=== PATIENT | female | born 1955 | race Caucasian/White ===

== ENCOUNTER → 2017-03-03 | Outpatient (CLI) | payer BC ==
--- NOTE | 2017-03-04 06:01 | WWHP ---
DATE OF SERVICE: 03/03/2017 CHIEF COMPLAINT: The patient is here for her routine gynecologic exam and mammogram. HPI: This is a 61-year-old G1, P1 with an LMP of 2002. The patient denies any postmenopausal bleeding. She has been experiencing some pelvic pressure for the past couple of weeks. The patient had a urinalysis done through Dr. Avalos's office which showed some leukocytes and blood. She was started on Macrobid, but this caused her heart to pound and this was discontinued. She was then started on cefuroxime and she took this for 4 days. The urine culture came back negative and she was instructed to discontinue the antibiotic. She states she still is having some pelvic pressure. She initially had dysuria when the symptoms started, but this did resolve. She also has been experiencing some urinary frequency and occasional low back discomfort. PAST MEDICAL HISTORY: Osteoporosis and seasonal allergies. MEDICATIONS: Vitamin D3, 2000 units daily. ALLERGIES: MACROBID, TETRACYCLINE, SULFA and ALEVE. She also has an allergy to FISH, which causes swelling. PAST SURGICAL HISTORY: D&C x2, the most recent was in 2009, also colonoscopy in 2016. PAST CHILD NEUROLOGIST HISTORY: She has a history of genital HSV with rare outbreaks. She has no other history of STDs. She has been menopausal since 2002. SOCIAL HISTORY: She denies tobacco, alcohol and drug use. She has been since 1982 and is a retired dental assistant engineer. Family history is unchanged from the 2016 H&P. REVIEW OF SYSTEMS: Weight has been stable. She denies respiratory or cardiac problems. GI: Occasional heartburn with certain foods. PHYSICAL EXAM: Blood pressure 149/84. Height 5 feet 2 inches. Weight 144 pounds. Temperature 98.1. Pulse 105. This is a well-developed, well- nourished white female who is alert and oriented x3 in no acute distress. HEENT: Within normal limits. NECK: Supple without mass or thyromegaly. CHEST AND LUNGS: Clear to auscultation. HEART: Regular rate and rhythm. Breasts are without mass or discharge. Axillary exam is negative for adenopathy. BACK: Negative for CVA tenderness. ABDOMEN: Soft, nontender without palpable masses. PELVIC EXAM: External genitalia reveals mild to moderate atrophy without lesions. Cervix and vagina reveals mild to moderate atrophy without lesions. There is no evidence of prolapse and there is no unusual discharge. There is no cervical motion tenderness. The uterus is mid position, multiparous, nongravid size, but there is mild tenderness in the area of the uterus and bladder with deep bimanual palpation in the central region. There are no palpable adnexal masses or tenderness. Rectovaginal exam is negative for mass or tenderness and is negative for occult blood. EXTREMITIES: Nontender. IMPRESSION: A 61-year-old menopausal female with bladder pressure over the last couple of weeks. Differential diagnosis will include residual symptoms from a urinary tract infection, uterine enlargement and possible fibroids as well as noninfectious urinary symptoms. PLAN: 1. Pap smear was deferred since she had a normal one last year. 2. Self-breast examination was discussed. 3. Mammogram will be done today. 4. Pelvic ultrasound will be scheduled. 5. We discussed her elevated blood pressure. I have recommended that she have her blood pressure checked on a regular basis and she will follow up with Dr. Avalos for blood pressure elevations. 6. We discussed her osteoporosis and management. We have discussed adequate calcium, vitamin D and regular exercise. I have also recommended medications because of her increased risks for bone fracture. She states she has discussed this with Dr. Avalos who did offer medication in the form of Prolia, but she is declining all medications at this time. She will let me know if she changes her mind. 7. If the pelvic ultrasound is unremarkable, I have recommended that she follow up with Dr. Avalos for possible repeat urine testing in one week. 8. She will return in one year and p.r.n. MTDD
--- NOTE | 2017-03-04 13:50 | MM ---
Reason for exam: screening (asymptomatic). Last mammogram was performed 1 year ago. History: Patient is postmenopausal. Cancelled Left Mammotome of the left breast, March 20, 2006. Cyst aspiration of the right breast, 2002. Took hormonal contraceptives for 8 years. Physical Findings: A clinical breast exam by your physician is recommended on an annual basis and results should be correlated with mammographic findings. MG 3D Screening Mammo W/Cad Bilateral CC and MLO view(s) were taken. Prior study comparison: February 26, 2016, bilateral MG 3d screening mammo w/cad. January 29, 2015, bilateral MG screening mammo w CAD. There are scattered fibroglandular densities. There is no discrete abnormality. No significant changes when compared with prior studies. ASSESSMENT: Negative, BI-RAD 1 RECOMMENDATION: Routine screening mammogram of both breasts in 1 year.
== END | disposition home or self-care (01) ==
LOC: RADMAMWWP 09:43
PROVIDERS: ATTEND Obstetrics & Gynecology
DX: Z12.31 Encounter for screening mammogram for malignant neoplasm of breast (principal)
CPT/HCPCS: 77063; G0202

== ENCOUNTER → 2017-03-12 | Outpatient (CLI) | payer BC ==
--- NOTE | 2017-03-12 12:57 | US ---
EXAMINATION TYPE: US pelvis complete transvag DATE OF EXAM: 03/12/2017 COMPARISON: CLINICAL HISTORY: R10.2 Pelvic Pain,R68.89 abnormal pelvic exam. mid pressure and discomfort, PASSENGER SERVICE AGENT TECHNIQUE: Transvaginal (TV) and Transabdominal (TA) , transvaginal imaging performed for attempted evaluation of ovaries Date of LMP: Postmenopausal, EXAM MEASUREMENTS: Uterus: 6.5 x 3.7 x 3.3 cm 1. Uterus: Anteverted isoechoic fundal lesion, best seen transabdominally =2.6 x 2.4 x 2.6 cm 2. Endometrium: Not seen due to fundal lesion 3. Right Ovary: Obscured by overlying bowel gas 4. Left Ovary: Obscured by overlying bowel gas Bilateral Adnexa: wnl Posterior cul-de-sac: No free fluid IMPRESSION: Fibroid uterus shows a similar appearance to prior exam. Exam is limited as described.
== END | disposition home or self-care (01) ==
LOC: RADUSWWP 10:03
PROVIDERS: ATTEND Obstetrics & Gynecology
DX: D25.9 Leiomyoma of uterus, unspecified (principal)
CPT/HCPCS: 76830; 76856

== ENCOUNTER → 2018-03-26 | Outpatient (CLI) | payer BC ==
--- NOTE | 2018-03-31 09:52 | MM ---
Reason for exam: screening (asymptomatic). Last mammogram was performed 1 year and 1 month ago. History: Patient is postmenopausal. Cancelled Left Mammotome of the left breast, March 20, 2006. Cyst aspiration of the right breast, 2002. Took hormonal contraceptives for 8 years. Physical Findings: A clinical breast exam by your physician is recommended on an annual basis and results should be correlated with mammographic findings. MG 3D Screening Mammo W/Cad Bilateral CC and MLO view(s) were taken. Technologist: RT Brandon (R)(M) Prior study comparison: March 03, 2017, bilateral MG 3d screening mammo w/cad. February 26, 2016, bilateral MG 3d screening mammo w/cad. There are scattered fibroglandular densities. There is chronic nodularity in the right breast. Global asymmetry posterior right upper outer quadrant. Benign secretory calcifications on the left. No significant changes when compared with prior studies. ASSESSMENT: Benign, BI-RAD 2 RECOMMENDATION: Routine screening mammogram of both breasts in 1 year.
== END | disposition home or self-care (01) ==
LOC: RADMAMWWP 08:29
PROVIDERS: ATTEND Obstetrics & Gynecology
DX: Z12.31 Encounter for screening mammogram for malignant neoplasm of breast (principal)
CPT/HCPCS: 77063; 77067

== ENCOUNTER → 2019-03-28 | Outpatient (CLI) | payer BC ==
[2019-03-28 09:22] LABS: Basophils % (A) 1 %; Eosinophils % (A) 1 %; HCT 42.6 % (34.0-46.0); HGB 13.9 gm/dL (11.4-16.0); Lymphocytes # (A) 1.6 k/uL (1.0-4.8); Lymphocytes % (A) 38 %; MCH 29.5 pg (25.0-35.0); MCHC 32.5 g/dL (31.0-37.0); MCV 90.6 fL (80.0-100.0); Mean Platelet Volume 8.5; Monocytes # (A) 0.3 k/uL (0-1.0); Monocytes % (A) 7 %; Neutrophils # (A) 2.1 k/uL (1.3-7.7); Neutrophils % (A) 51 %; Platelet Count 235 k/uL (150-450); RDW 13.7 % (11.5-15.5); WBC 4.1 k/uL (3.8-10.6)
[2019-03-28 09:39] LABS: ALT 23 U/L (9-52); AST 26 U/L (14-36); African American GFR (CKD) >90 (>60 ml/min/1.73 sqM); Albumin 4.2 g/dL (3.5-5.0); Alkaline Phosphatase 71 U/L (38-126); Anion Gap 9 mmol/L; Blood Urea Nitrogen 20 mg/dL (7-17); Calcium 9.5 mg/dL (8.4-10.2); Carbon Dioxide 26 mmol/L (22-30); Chloride 106 mmol/L (98-107); Cholesterol 194 mg/dL (<200); Glucose 105 mg/dL (74-99); HDL Cholesterol 71 mg/dL (40-60); LDL Cholesterol,Calculated 112 mg/dL (0-99); Potassium 4.1 mmol/L (3.5-5.1); Sodium 141 mmol/L (137-145); Total Bilirubin 0.5 mg/dL (0.2-1.3); Total Protein 7.3 g/dL (6.3-8.2); Triglycerides 56 mg/dL (<150)
--- NOTE | 2019-03-28 09:57 | BD ---
EXAMINATION TYPE: Axial Bone Density DATE OF EXAM: 03/28/2019 COMPARISON: 2016 CLINICAL HISTORY: age related osteoporosis Height: 5'2 1/2 Weight: 139 FRAX RISK QUESTIONS: Family History (Parent hip fracture): y Secondary Osteoporosis: RISK FACTORS HISTORY OF: Family History of Osteoporosis: y Postmenopausal woman: y MEDICATIONS: Additional Medications: Additional History: EXAM MEASUREMENTS: Bone mineral densitometry was performed using the [employer] System. Bone mineral density as measured about the Lumbar spine is: ----- L1-L4(G/cm2): 0.981 T Score Values are as follows: ----- L2: -2.1 ----- L3: -1.4 ----- L4: -1.4 ----- L1-L4: -1.7 Bone mineral density has: Decreased -0.8% since study of: 05/13/2016 Bone mineral density about the R hip (g/cm2): 0.672 Bone mineral density about the L hip (g/cm2): 0.664 T Score values are as follows: -----R Neck: -2.6 -----L Neck: -2.7 -----R Total: -2.5 -----L Total: -2.4 Bone mineral density has: 0 % since study of: 05/13/2016 IMPRESSION: Osteoporosis (T Score less than -2.5). There is increased fracture risk and therapy is usually indicated based on age. Re-Screen 1-2 years. NOTE: T-SCORE=SD OF THE YOUNG ADULT MEAN.
[2019-03-28 17:19] LABS: Hemoglobin A1C 5.7 % (4.0-6.0)
--- NOTE | 2019-03-29 15:34 | MM ---
Reason for exam: screening (asymptomatic). Last mammogram was performed 1 year ago. History: Patient is postmenopausal. Cancelled Left Mammotome of the left breast, March 20, 2006. Cyst aspiration of the right breast, 2002. Took hormonal contraceptives for 8 years. Physical Findings: A clinical breast exam by your physician is recommended on an annual basis and results should be correlated with mammographic findings. MG 3D Screening Mammo W/Cad Bilateral CC and MLO view(s) were taken. Prior study comparison: March 26, 2018, bilateral MG 3d screening mammo w/cad. March 03, 2017, bilateral MG 3d screening mammo w/cad. The breast tissue is heterogeneously dense. This may lower the sensitivity of mammography. There are benign-appearing bilateral breast calcifications. No suspicious abnormality. No significant new finding when compared with prior studies. ASSESSMENT: Benign, BI-RAD 2 RECOMMENDATION: Routine screening mammogram of both breasts in 1 year.
== END | disposition home or self-care (01) ==
LOC: RADMAMWWP 07:58
PROVIDERS: ATTEND Internal Medicine Geriatric Medicine
DX: Z12.31 Encounter for screening mammogram for malignant neoplasm of breast (principal); M81.0 Age-related osteoporosis without current pathological fracture; Z00.00 Encounter for general adult medical examination without abnormal findings; R00.1 Bradycardia, unspecified; Z13.220 Encounter for screening for lipoid disorders; R79.9 Abnormal finding of blood chemistry, unspecified
CPT/HCPCS: 77063; 77067; 77080; 80053; 80061; 83036; 84439; 84443; 85025

== ENCOUNTER → 2020-04-20 | Outpatient (CLI) | payer MEDICARE ==
--- NOTE | 2020-04-24 11:20 | MM ---
Reason for exam: screening (asymptomatic). Last mammogram was performed 1 year and 1 month ago. History: Patient is postmenopausal. Cancelled Left Mammotome of the left breast, March 20, 2006. Cyst aspiration of the right breast, 2002. Took hormonal contraceptives for 8 years. Physical Findings: A clinical breast exam by your physician is recommended on an annual basis and results should be correlated with mammographic findings. MG 3D Screening Mammo W/Cad Bilateral CC and MLO view(s) were taken. Prior study comparison: March 28, 2019, bilateral MG 3d screening mammo w/cad. March 26, 2018, bilateral MG 3d screening mammo w/cad. There are scattered fibroglandular densities. Benign secretory calcifications medial left breast. Mole superior left breast. No significant changes when compared with prior studies. ASSESSMENT: Benign, BI-RAD 2 RECOMMENDATION: Routine screening mammogram of both breasts in 1 year.
== END | disposition home or self-care (01) ==
LOC: RADMAMWWP 13:24
PROVIDERS: ATTEND Obstetrics & Gynecology
DX: Z12.31 Encounter for screening mammogram for malignant neoplasm of breast (principal)
CPT/HCPCS: 77063; 77067

== ENCOUNTER → 2021-04-29 | Outpatient (CLI) | payer MEDICARE ==
--- NOTE | 2021-04-30 09:38 | MM ---
Reason for exam: screening (asymptomatic). Last mammogram was performed 1 year ago. History: Patient is postmenopausal. Cancelled Left Mammotome of the left breast, March 20, 2006. Cyst aspiration of the right breast, 2002. Took hormonal contraceptives for 8 years. Physical Findings: A clinical breast exam by your physician is recommended on an annual basis and results should be correlated with mammographic findings. MG 3D Screening Mammo W/Cad Bilateral CC and MLO view(s) were taken. Prior study comparison: April 20, 2020, bilateral MG 3d screening mammo w/cad. March 28, 2019, bilateral MG 3d screening mammo w/cad. There are scattered fibroglandular densities. Stable benign calcifications. There is no discrete abnormality. No significant changes when compared with prior studies. ASSESSMENT: Benign, BI-RAD 2 RECOMMENDATION: Routine screening mammogram of both breasts in 1 year.
== END | disposition home or self-care (01) ==
LOC: RADMAMWWP 09:49
PROVIDERS: ATTEND Obstetrics & Gynecology
DX: Z12.31 Encounter for screening mammogram for malignant neoplasm of breast (principal); Z78.0 Asymptomatic menopausal state
CPT/HCPCS: 77063; 77067

== ENCOUNTER → 2022-04-30 | Outpatient (CLI) | payer MEDICARE ==
--- NOTE | 2022-05-01 08:11 | MM ---
Reason for Exam: Screening (asymptomatic). Last screening mammogram was performed 12 month(s) ago. Patient History: Menarche at age 10. First Full-Term at age 21. Postmenopausal. Patient used Hormonal Contraceptives for 8 years. 2002, Cyst Aspiration on the Right side. 03/20/2006, Cancelled Left Mammotome on the left side. Risk Values: Ute 5 year model risk: 1.5%. NCI Lifetime model risk: 5.0%. Prior Study Comparison: 03/28/2019 Bilateral Screening Mammogram, [facility]. 04/20/2020 Bilateral Screening Mammogram, [facility]. 04/29/2021 Bilateral Screening Mammogram, [facility]. Tissue Density: There are scattered fibroglandular densities. Findings: Analyzed By CAD. There is an increasing group of microcalcifications inner central left breast zone C. Additional views are recommended. Otherwise benign secretory calcifications seen. Chronic nodularity upper outer right breast. Overall Assessment: Incomplete: need additional imaging evaluation, BI-RAD 0 Management: Diagnostic Mammogram of the left breast. A clinical breast exam by your physician is recommended on an annual basis and results should be correlated with mammographic findings. Electronically signed and approved by: Nato Laguerre M.D. Radiologis
== END | disposition home or self-care (01) ==
LOC: RADMAMWWP 09:51
PROVIDERS: ATTEND Obstetrics & Gynecology
DX: Z12.31 Encounter for screening mammogram for malignant neoplasm of breast (principal); Z78.0 Asymptomatic menopausal state
CPT/HCPCS: 77063; 77067

== ENCOUNTER → 2022-05-09 | Outpatient (CLI) | payer MEDICARE ==
--- NOTE | 2022-05-09 10:24 | USB ---
Patient History: Menarche at age 10. First Full-Term at age 21. Postmenopausal. Patient used Hormonal Contraceptives for 8 years. 2002, Cyst Aspiration on the Right side. 03/20/2006, Cancelled Left Mammotome on the left side. Risk Values: Ute 5 year model risk: 1.5%. NCI Lifetime model risk: 4.8%. Technique: Method: Targeted. Prior Study Comparison: 04/20/2020 Bilateral Screening Mammogram, [facility]. 04/29/2021 Bilateral Screening Mammogram, [facility]. 04/30/2022 Bilateral MG 3D screening mammo w/cad, [facility]. Findings: The lower inner quadrant of the left breast and the retroareolar of the left breast were scanned. At the 9:00 position left breast there is a 0.8 x 0.6 x 1.1 cm hypoechoic area with some posterior shadowing. This is 11 cm from the nipple appears to correspond to mammographic abnormality. Ultrasound-guided biopsy is recommended. A hypoechoic area in tolerance and wide 13 cm from the nipple is at the 9:00 position near the chest wall. This area measures 0.8 x 0.7 x 1.1 cm.. Ultrasound-guided Biopsy is recommended. Suspicious abnormality correlate with the more anterior mammographic nodule is not identified. Overall Assessment: Suspicious, BI-RAD 4 Management: Ultrasound Core Biopsy of the left breast. A clinical breast exam by your physician is recommended on an annual basis and results should be correlated with mammographic findings. Electronically signed and approved by: Carter Logan D.O. Radiologis
--- NOTE | 2022-05-09 13:48 | MM ---
Reason for Exam: Additional evaluation requested from abnormal screening. Last screening mammogram was performed less than 1 month ago. Patient History: Menarche at age 10. First Full-Term at age 21. Postmenopausal. Patient used Hormonal Contraceptives for 8 years. 2002, Cyst Aspiration on the Right side. 03/20/2006, Cancelled Left Mammotome on the left side. Risk Values: Ute 5 year model risk: 1.5%. NCI Lifetime model risk: 4.8%. Prior Study Comparison: 04/20/2020 Bilateral Screening Mammogram, [facility]. 04/29/2021 Bilateral Screening Mammogram, [facility]. 04/30/2022 Bilateral MG 3D screening mammo w/cad, [facility]. Tissue Density: Left: There are scattered fibroglandular densities. Findings: Analyzed By CAD. There is a persistent irregular mammographic density adjacent to multiple calcifications. Mammographic densities appear to correspond ultrasound findings. Findings are considered suspicious. Ultrasound biopsy to adjacent locations is recommended. Correlation with location of the calcifications is then recommended. Overall Assessment: Suspicious, BI-RAD 4 Management: Ultrasound Core Biopsy of the left breast. A clinical breast exam by your physician is recommended on an annual basis and results should be correlated with mammographic findings. This exam should not preclude additional follow-up of suspicious palpable abnormalities. Results were given to the patient verbally at the time of exam. Electronically signed and approved by: Carter Logan D.O. Radiologis
== END | disposition home or self-care (01) ==
LOC: RADMAMWWP 09:22
PROVIDERS: ATTEND Obstetrics & Gynecology
DX: R92.8 Other abnormal and inconclusive findings on diagnostic imaging of breast (principal); Z78.0 Asymptomatic menopausal state
CPT/HCPCS: 77065; 76642; G0279; 77061

== ENCOUNTER → 2022-05-22 | Day surgery (SDC) | payer MEDICARE ==
--- NOTE | 2022-05-30 12:07 | USB ---
Risk Values: Ute 5 year model risk: 1.5%. NCI Lifetime model risk: 4.8%. Pathology Description: Location: 9 o'clock. Marker Left Behind. Needle Type: Celero Cores: 2 Gauge: 12 The procedure of ultrasound guided core biopsy was explained to the patient. Benefits, alternatives, and risks were discussed. An informed consent was then obtained. The patient was placed in supine positioning for imaging and for the procedure. Preprocedure imaging redemonstrates hypervascular round hypoechoic 8 mm mass 9:00 position 11 cm distance from nipple and more vague irregular slightly hypoechoic deeper roughly 6 mm lesion near this level 13 cm distance from nipple. The overlying skin was prepped and draped in usual sterile fashion. Lidocaine is used as anesthetic into the skin and subcutaneous tissue. Lidocaine with epinephrine is used as anesthetic into the deeper tissue up to area of concern in the left breast. A zeeshan was made with surgical scalpel. Under ultrasound guidance, a vacuum assisted biopsy gun device was used to obtain 2 core samples at both sites. Following this, a biopsy clip was left in both lesions. The patient tolerated the procedure well without any immediate complication. The patient was kept in the radiology department for short stay after the procedure and then discharged home in stable condition. Postprocedure mammogram: The patient was transferred to mammography for physician ordered post procedure mammogram for clip placement verification. Clips correspond to areas of concern on mammogram are not both imaged due to posterior position on cc view. Impression: Successful, uncomplicated ultrasound guided core biopsy of both areas of concern in the left breast, full pathology results to follow. Intermediate to high index of suspicion for the slightly larger more well-defined lesion and intermediate index of suspicion for the second area of concern. Pathology Results: Result: Malignant, Invasive ductal carcinoma. A. LEFT BREAST, 9:00, ULTRASOUND GUIDED NEEDLE CORE BIOPSY: Invasive moderately differentiated ductal carcinoma (Grade 2). See Surgical Pathology Cancer Case Summary. B. LEFT BREAST, 9:00, ULTRASOUND GUIDED NEEDLE CORE BIOPSY: Invasive moderately differentiated ductal carcinoma (Grade 2). See Surgical Pathology Case Summary. Pathology Description: Location: 9 o'clock. Marker Left Behind. Needle Type: Celero Cores: 2 Skin Nicks: 1 Gauge: 12 Tissue Density: Left: There are scattered fibroglandular densities. Overall Assessment: Malignant Assessment: MG diagnostic mammo LT wo CAD. - Left: Known biopsy proven malignancy, BI-RAD 6. Management: Surgical Consultation of the left breast. Electronically signed and approved by: Harvey Marques M.D.
== END ==
LOC: RADUSWWP 12:37
PROVIDERS: ATTEND Surgery
DX: R92.8 Other abnormal and inconclusive findings on diagnostic imaging of breast (principal)
CPT/HCPCS: 88305; 88342; 88341; 77065; 19083; 19084; A4648

== ENCOUNTER → 2022-06-09 | Outpatient (CLI) | payer MEDICARE ==
--- NOTE | 2022-06-11 10:04 | BMR ---
EXAMINATION TYPE: MR breast BILAT wo/w con DATE OF EXAM: 06/09/2022 COMPARISON: 3-D screening mammogram April 30, 2022 BI-RADS 0. Diagnostic left breast mammogram [facility] to[facility] 2021 BI-RADS 4. Left breast limited ultrasound May 09, 2022 BI-RADS 4 HISTORY: MALIGNANT NEOPLASM OF UNSPECIFIED SITE OF BREAST. Invasive moderately differentiated ductal carcinoma grade 2 on 2 nearby site biopsies 9:00 position left breast. TECHNIQUE: A series of fat and water weighted images in the long and short axis views of both breasts are obtained in conjunction with dynamic contrast MRI with subtraction technique. The patient was i njected with 6 mL intravenous Gadavist gadolinium contrast. Three-dimensional and additional postpr ocessing imaging is created on independent workstation and reviewed during official interpretation of this study. Exam performed with report generated by [facility] breast radiologist for correlation for official interpre tation of this study. Field of view for the dynamic portion of this study was 35 cm. FINDINGS: Scattered fibroglandular tissue bilaterally is redemonstrated. T2 and STIR weighted images show occa sional tiny thin-walled cysts throughout the bilateral breast. No concerning focal fluid collections are seen. Benign-appearing bilateral axillary lymph nodes are present. No abnormal adenopathy seen. D ynamic postcontrast imaging shows mild background enhancement. Delayed dynamic imaging shows no suspi cious internal mammary adenopathy bilaterally. 2 regions of signal void are identified within the posterior 9 o'clock position of the left breast, b oth corresponding to mammographic marker clips seen on the 05/22/2022 mammogram. With regards to the right breast. No abnormal skin thickening is seen. No pathologic enhancement or e nhancing masses noted. Chest wall is intact. With regards to the left breast, At the 9 o'clock position, 9.7 cm from the nipple, there is an irreg ular mass with spiculated margins measuring 1.0 x 0.8 x 1.2 cm. With biopsy clip along superior jaret n. Internal enhancement is heterogeneous. Kinetic assessment demonstrates fast initial enhancement fo llowed by washout in the delayed portions of the curve. This is best seen in image number 97 of the d ynamic sequence. Just superior to this at 9:00 position approximately 8 cm distance r from the nipple, there is linear distribution non mass enhancement measuring 2.9 AP diameter ex 0.4 x 1.0 cm. Internal enhancement is clumped. Kinetic assessment demonstrates fast initial enhancement followed by washout in the delayed portions of the curve. This is best seen in image number 109 of the dynamic sequence. Total extent between mass and non mass enhancement is 3.5 cm and is in the distribution of the mammog raphic microcalcifications. No other masses or suspicious areas of enhancement are otherwise identified. IMPRESSION: Left breast multifocal malignancy as described in detail on the body of the report measures a maximum extent of 3.5 cm. No evidence of malignancy in the right breast. No lymphadenopathy. Recommendations: Appropriate action be taken of the known left breast malignancy. If breast conservat ion is desired, can bracket the extent of mammographic microcalcifications. In addition, next mammogr aphic evaluation will be due in May 2023. BI-RADS category 1, negative right breast. BI-RADS category 6, known biopsy proven malignancy left breast.
== END | disposition home or self-care (01) ==
LOC: RADMRIMAIN 11:48
PROVIDERS: ATTEND Surgery
DX: C50.812 Malignant neoplasm of overlapping sites of left female breast (principal)
CPT/HCPCS: C8908; A9585; 77049

== ENCOUNTER → 2022-07-01 | Day surgery (SDC) | payer MEDICARE ==
[2022-06-30 08:45] VITALS: BMI 23.8
[~2022-07-01] MED LIST: ACETAMINOPHEN TAB 325 MG TAB PO PRN; ACETAMINOPHEN TAB 500 MG TAB PO PRN; ALPRAZolam 0.25 MG TAB ONE; DEXAMETHASONE SOD PHOSPHATE 4 MG/ML 1 ML VIAL IV ONE; HEPARIN SODIUM,PORCINE/PF 5,000 UNIT/0.5 ML SYRINGE SQ PRN; HYDROmorphone 0.5 MG/0.5 ML SYRINGE IVP PRN; LACTATED RINGERS 1,000 ML IV SCH; LIDOCAINE 1% INJ 10MG/ML (30 ML VIAL-PF) SQ ONE; LIDOCAINE 2% INJ 20 MG/ML (2 ML VIAL) ONE; LIDOCAINE 4% LTA KIT (4 ML) TOPICAL ONE; METHYLENE BLUE 10 MG/ML (10 ML VIAL) INJ ONE; MIDAZOLAM 2 MG/2 ML VIAL ONE; NALOXONE 0.4 MG/ML 1 ML VIAL IV PRN; ONDANSETRON 4 MG/2 ML VIAL IVP ONE; PROPOFOL 10 MG/ML 20 ML VIAL IV ONE; Pre Op ABX Message 1 EACH MISC MISCELLANE ONE; SODIUM CHLORIDE 0.9% 50 ML with ceFAZolin 2 GM IV ONE; SUCCINYLCHOLINE CHLORIDE 200 MG/10 ML VIAL IV ONE; fentaNYL (PF) 50 MCG/ML 2 ML AMP ONE; traMADol 50 MG TAB PO PRN
--- NOTE | 2022-07-01 10:24 | P.GSHP ---
History of Present Illness H&P Date: 07/01/22 Chief Complaint: Left breast cancer 67-year-old female presents today for left breast lumpectomy with sentinel lymph node biopsy. Patient had recent biopsy of 2 separate lesions present at 9:00 left breast. 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 Patient had MRI performed showing 2 separate lesions both in proximity to one another at the 9:00 location. She was seen by oncology preoperatively. Past Medical History Past Medical History: Hyperlipidemia Additional Past Medical History / Comment(s): "Cholesterol ok now." History of Any Multi-Drug Resistant Organisms: None Reported Additional Past Surgical History / Comment(s): D&C. Past Anesthesia/Blood Transfusion Reactions: No Reported Reaction Past Psychological History: No Psychological Hx Reported Smoking Status: Never smoker Past Alcohol Use History: None Reported Past Drug Use History: None Reported - Past Family History Father Family Medical History: Cancer Additional Family Medical History / Comment(s): Basal cell on forehead. Mother Additional Family Medical History / Comment(s): "Was on Coumadin". Medications and Allergies Home Medications Medication Instructions Recorded Confirmed Type Cholecalciferol (Vitamin D3) 125 mcg PO DAILY 05/13/22 06/30/22 History [Vitamin D3 (125 MCG = 5,000 IU)] Timolol 0.25% Ophth Soln [Timoptic] 1 drops BOTH EYES DAILY 05/13/22 06/30/22 History Allergies Allergy/AdvReac Type Severity Reaction Status Date / Time Fish Containing Products Allergy Swelling Verified 06/30/22 08:45 [Fish] naproxen [From Aleve] AdvReac Unknown Verified 06/30/22 08:45 nitrofurantoin AdvReac Rapid Verified 06/30/22 08:45 [From Macrobid] Heart Rate Sulfa (Sulfonamide AdvReac Vomiting Verified 06/30/22 08:45 Antibiotics) Tetracyclines AdvReac Vomiting Verified 06/30/22 08:45 Surgical - Exam Physical exam: General: Well-developed, well-nourished HEENT: Normocephalic, sclerae nonicteric Abdomen: Nontender, nondistended Extremities: No edema Neuro: Alert and oriented Left breast with 2 separate masses 9:00, no adenopathy Assessment and Plan (1) Breast cancer, left Narrative/Plan: 67-year-old female with left breast cancer. We'll proceed with left breast lumpectomy 2 separate wires in order bracket that location, sentinel lymph node biopsy and injection. Risks of bleeding, infection, scarring, possible need for further surgery, recurrence, nerve injury, seroma, lymphedema reviewed. She understands and wishes to proceed. Status: Acute Code(s): C50.912 - MALIGNANT NEOPLASM OF UNSPECIFIED SITE OF LEFT FEMALE BREAST SNOMED Code(s): 201627736
[2022-07-01 12:43] LABS: Basophils % (A) 1 %; Eosinophils % (A) 1 %; HCT 43.3 % (34.0-46.0); Lymphocytes # (A) 1.3 k/uL (1.0-4.8); Lymphocytes % (A) 29 %; MCH 32.1 pg (25.0-35.0); MCHC 34.6 g/dL (31.0-37.0); MCV 92.8 fL (80.0-100.0); Monocytes # (A) 0.3 k/uL (0-1.0); Monocytes % (A) 6 %; Neutrophils # (A) 2.9 k/uL (1.3-7.7); Neutrophils % (A) 63 %; Platelet Count 216 k/uL (150-450); RBC 4.67 m/uL (3.80-5.40); WBC 4.7 k/uL (3.8-10.6)
--- NOTE | 2022-07-01 16:01 | NM ---
EXAMINATION TYPE: NM sentinel node injection DATE OF EXAM: 07/01/2022 COMPARISON: NONE INDICATION: Abnormal mammogram. Informed consent was obtained. A timeout was performed. The area around the left nipple was cleansed with alcohol. In a single dose, a total of 510 uCi Ce hnetium 99m Tilmanocept was injected. The patient tolerated the procedure very well. IMPRESSIONS: 1. Successful injection for sentinel node evaluation.
--- NOTE | 2022-07-01 16:57 | P.OP ---
Date of Procedure: 07/01/22 Procedure(s) Performed: PREOPERATIVE DIAGNOSIS: Left breast cancer POSTOPERATIVE DIAGNOSIS: Same PROCEDURE: Left Breast wire localization lumpectomy with sentinel lymph node biopsy SURGEON: Elsie EBL: Minimal ANESTHESIA: General COMPLICATIONS: None OPERATIVE PROCEDURE: Patient was placed on the operating room table in the supine position. 2 mL of methylene blue was injected into the subareolar space. The breast was then massaged for 5 minutes. The breast was prepped and draped in usual sterile fashion. The left axilla was addressed at that time. The hot spot in the left axilla was identified. A small curvilinear incision was made using the scalpel. Dissection down through the subcutaneous tissues took place using electrocautery. Using the neoprobe I identified a total of 3 sentinel lymph nodes. 2 of these were blue in color. These had benign exam characteristics. These were all removed and sent to pathology for permanent sectioning. The surgical site was inspected and no bleeding was seen. The subcutaneous tissues were closed using 3-0 Vicryl sutures. The skin was closed using 4-0 Monocryl sutures. The wire entrance site was then addressed. The patient had 3 separate wires entering the breast at the 9:00 location. A horizontal incision was made at 9:00. The subcutaneous breast tissues were dissected until all wires were entering from the incision site. An adequate lumpectomy specimen then took place around the wire. Margins of 1.5-2 cm worth attempted to be achieved. Palpation of the specimen suggested that the inferior margin was somewhat close. I took an additional margin inferiorly and this margin was painted the appropriate color on the new margin side. The initial specimen was also painted the appropriate 6 colors. The black color was accidentally used for the posterior margin in the purple for the superior. Clips were used to identify the lumpectomy cavity. The clips were confirmed to be within the lumpectomy specimen by radiology. The subcutaneous tissues were closed using 3-0 Vicryl sutures. The skin was closed using a running 4-0 Monoc ryl stitch. Skin glue was then applied. DISPOSITION: Stable to recovery room
[2022-07-01 16:58] VITALS: TEMP 97.5
[2022-07-01 17:56] VITALS: RESP 16
[2022-07-01 18:54] VITALS: BP 132/70; PULSE 87
--- NOTE | 2022-07-04 08:12 | USB ---
EXAM: US breast localization LT DATE OF EXAM: 07/01/2022 COMPARISON: 04/30/2022 Bilateral MG 3D screening mammo w/cad, [facility]. 05/09/2022 Left MG 3D work up w/cad LT, [facility]. 05/22/2022 Left MG diagnostic mammo LT wo CAD., [facility]. DESCRIPTION: Due to the very posterior nature of the coil marker attempt to localize this posterior a eduardo for bracketing was performed with ultrasound. The needle localization procedure with wire placement for surgical excision was explained to the ayala ent. Benefits, alternatives, and risks were discussed. An informed consent was then obtained. A ti meout was performed. The overlying skin was prepped in usual sterile fashion. Lidocaine was used as anesthetic into the s kin and subcutaneous tissue up to the level of area of concern. A 5 cm needle was used. It was plac ed using a lateral medial approach under ultrasound guidance. The wire was placed and the needle was withdrawn. The wire was fixed to patient's skin. Post procedure mammogram was obtained. Wire positi oning was not felt to be optimal and additional attempt for mammographic wire localization was perfor med. This wire was labeled and given its known close position to the core marker. Wire positioning fo r this ultrasound was discussed with the referring surgeon. The patient tolerated the procedure well without any immediate complication. The patient was kept in the radiology department for short stay after the procedure and then taken to surgery for surgical e xcision. Specimen: Biopsy markers and wire are identified in specimen mammogram. Impression: 1. Ultrasound-guided needle localization with wire placement and surgical excision of biopsy marker.
--- NOTE | 2022-07-11 10:56 | MM ---
Prior Study Comparison: 04/30/2022 Bilateral MG 3D screening mammo w/cad, [facility]. 05/09/2022 Left MG 3D work up w/cad LT, [facility]. 05/22/2022 Left MG diagnostic mammo LT wo CAD., [facility]. Pathology Description: Approach: Medial to Lateral Needle Type: 5 cm Kopan The procedure of needle localization with wire placement and than surgical excision was explained to the patient. Benefits, alternatives, and risks were discussed. An informed consent was then obtained. The shortest pathway for procedure was chosen. Shortest pathway was medial to lateral approach. The overlying skin was prepped and draped in usual sterile fashion. Lidocaine was used as anesthetic into the skin and subcutaneous tissue up to the level of area of concern. A 5 cm needle was used. It was placed via a medial approach under mammographic guidance. Subsequent 90 degrees mammogram show the needle to be in satisfactory position relative to the targeted area. At this point, wire was placed and the needle was withdrawn. This was placed closer to the ribbon clip at the anterior margin of calcifications to be utilized as 1 portion of a bracket. The posterior clip could not be brought into the field of view despite multiple attempts. Ultrasound was utilized for the posterior clip needle localization. While wire placement appeared accurate ultrasound guidance this appeared to be confusing on the mammogram and a second attempt for mammographic wire localization of the posterior clip was performed. Patient was placed within the mammographic machine and the posterior coil clip was at the edge of the field of view. Mammographic localization was reattempted.The shortest pathway for procedure was chosen. Shortest pathway was medial to lateral approach. The overlying skin was prepped and draped in usual sterile fashion. Lidocaine was used as anesthetic into the skin and subcutaneous tissue up to the level of area of concern. A 7 cm needle was used. It was placed via a medial approach under mammographic guidance. Subsequent 90 degrees mammogram show the needle to be in satisfactory position relative to the targeted area. At this point, wire was placed and the needle was withdrawn. There was movement which required placement of the needle fairly anterior to the coil marker. This final placement was discussed with the referring physician by telephone. The wires were fixed to patient's skin. The ultrasound wire was separately labeled. Wire placement was discussed with the referring surgeon by telephone prior to surgery. The patient tolerated the procedure well without any immediate complication. The patient was kept in the radiology department for short stay after the procedure and then taken to surgery for surgical excision. Specimen: Targeted calcifications, 2 core marker clips, and 3 wires were present on the specimen mammogram. Impression: 1. Successful placement of wires for excision of targeted area and calcifications left breast. Pathology Results: Result: Malignant, Invasive ductal carcinoma. A. LEFT SENTINEL LYMPH NODES, EXCISION: Two sentinel lymph nodes, each negative for metastatic carcinoma. CK7 and CAESAR stains, each performed with appropriate controls on blocks A1 and A2, all negative for features of metastatic carcinoma. B. LEFT BREAST, LUMPECTOMY: Multifocal (2 foci) of grade 2 invasive ductal carcinoma with intermediate grade DCIS having focal comedonecrosis and microcalcification (see surgical pathology cancer case summary and comment). Inferior margin positive for invasive carcinoma. All other margins negative for invasive carcinoma. All margins negative for DCIS. Closest margin to DCIS: 1 mm from superior/posterior margin junction. C. NEW INFERIOR MARGIN, EXCISION: 1 mm area of residual invasive grade 2 ductal carcinoma. New inferior margin negative for invasive carcinoma with tumor measuring approximately 1.5 mm from closest new inferior margin. Pathology Description: Approach: Medial to Lateral Needle Type: 5 cm Paulette Overall Assessment: Malignant Management: Surgical Consultation of the left breast. Electronically signed and approved by: Carter Logan D.O. Radiologis
== END ==
LOC: OR 11:30
PROVIDERS: ATTEND Surgery
DX: D05.12 Intraductal carcinoma in situ of left breast (principal); R92.0 Mammographic microcalcification found on diagnostic imaging of breast; E78.5 Hyperlipidemia, unspecified; Z80.8 Family history of malignant neoplasm of other organs or systems; Z79.899 Other long term (current) drug therapy; Z88.6 Allergy status to analgesic agent; Z88.1 Allergy status to other antibiotic agents; Z88.2 Allergy status to sulfonamides; Z91.013 Allergy to seafood
CPT/HCPCS: 19301; 38525; 93005; 80051; 85025; 88342; 88307; 88341; 76098; 38792; C1819; A9520; J2250; J0330; J1100; J0690; J2405; J2001 ×2; Q9968; J3010; J2704; J1170; J1644; 19282

== ENCOUNTER → 2022-09-04 | Outpatient (CLI) | payer MEDICARE ==
--- NOTE | 2022-09-04 16:11 | BD ---
EXAMINATION TYPE: Axial Bone Density DATE OF EXAM: 09/04/2022 COMPARISON: 03/28/2019 CLINICAL HISTORY: 67 years year old Female. ICD-10 CODE: C50.812 MALIGNANT NEOPLASM OF OVRLP Height: 49506 Weight: FRAX RISK QUESTIONS: Alcohol (3 or more units per day): NO Family History (Parent hip fracture): YES Glucocorticoids (More than 3mos): NO History of Fracture in Adulthood: NO Secondary Osteoporosis: 1. Type 1 Diabetes: NO 2. Hyperthyroidism: NO 3. Menopause before 45: NO 4. Malnutrition: NO 5. Chronic liver disease: NO Rheumatoid Arthritis: NO Current Tobacco Use: NO RISK FACTORS HISTORY OF: Hip Fracture (Right/Left): NO Spine Fracture: NO History of Wrist Fracture: NO Surgery to Spine/Hip(right/left)/Wrist (right/left): NO Family History of Osteoporosis: MOTHER Active: YES Diet low in dairy products/other sources of calcium: YES Postmenopausal woman: YES Take estrogen and/or progesterone medications: NO Lost more than 2 inches in height since high school: NO Frequent falls: NO Poor Health: NO Hyperparathyroidism: NO Adrenal Insufficiency: NO MEDICATIONS: Prednisone or other steroids: NO Thyroid Medications: NO Osteoporosis Medications: ALENDRONATE JUST STARTED PAST WEEK Additional Medications: LETROZOLE, VIT D, CALCIUM Additional History: BREAST CA. 2021 WITH RADIATION AND AN ESTROGEN MARY EXAM MEASUREMENTS: Bone mineral densitometry was performed using the Sina System. Bone mineral density as measured about the Lumbar spine is: ----- L1-L4(G/cm2): 0.950 T Score Values are as follows: ----- L1: -2.6 ----- L2: -2.6 ----- L3: -1.5 ----- L4: -1.4 ----- L1-L4: -1.9 Bone mineral density has: DECREASED 2.2 % since study of: 03/28/2019 Bone mineral density about the R hip (g/cm2): 0.700 Bone mineral density about the L hip (g/cm2): 0.640 T Score values are as follows: -----R Neck: -2.4 -----L Neck: -2.9 -----R Total: -2.4 -----L Total: -2.5 Bone mineral density has: INCREASED 0.1 % since study of: 03/28/2019 FRAX%s: The graph provided illustrates a 27.9% chance for a major osteoporotic fx and a 10.1% chance for the hips probability for fx in 10 years time. IMPRESSION: Osteoporosis (T Score less than -2.5). There is increased fracture risk and therapy is usually indicated based on age. Re-Screen 1-2 years. NOTE: T-SCORE=SD OF THE YOUNG ADULT MEAN.
== END | disposition home or self-care (01) ==
LOC: RADBDWWP 15:20
PROVIDERS: ATTEND Internal Medicine Hematology & Oncology
DX: C50.812 Malignant neoplasm of overlapping sites of left female breast (principal); M81.0 Age-related osteoporosis without current pathological fracture
CPT/HCPCS: 77080

== ENCOUNTER → 2023-03-02 | Outpatient (CLI) | payer MEDICARE ==
[2023-03-02 15:44] LABS: Basophils # (A) 0.02 X 10*3/uL (0.00-0.10); Basophils % (A) 0.5 %; Eosinophils # (A) 0.04 X 10*3/uL (0.04-0.35); Eosinophils % (A) 0.9 %; HCT 43.1 % (37.2-46.3); HGB 13.9 d/dL (12.0-15.0); Immature Grans, Automated 0 %; Lymphocytes # (A) 0.94 X 10*3/uL (0.90-5.00); Lymphocytes % (A) 22.3 %; MCH 29.7 pg (27.0-32.0); MCHC 32.3 d/dL (32.0-37.0); MCV 92.1 FL (80.0-97.0); Mean Platelet Volume 11.4 FL (9.5-12.2); Monocytes # (A) 0.33 X 10*3/uL (0.20-1.00); Monocytes % (A) 7.8 %; NRBC Per 100 WBC 0 X 10*3/uL (0.00-0.01); Neutrophils # (A) 2.89 X 10*3/uL (1.80-7.70); Neutrophils % (A) 68.5 %; Platelet Count 222 X 10*3/uL (140-440); RBC 4.68 X 10*6/uL (4.10-5.20); RDW 12.4 % (11.5-14.5); WBC 4.22 X 10*3/uL (4.50-10.00)
[2023-03-02 16:12] LABS: ALT 16 U/L (8-44); AST 20 U/L (13-35); Albumin 4.5 d/dL (3.8-4.9); Albumin/Globulin Ratio 1.88 Ratio (1.60-3.17); Alkaline Phosphatase 69 U/L (41-126); BUN/Creat Ratio 25.88 Ratio (12.00-20.00); Blood Urea Nitrogen 20.7 mg/dL (9.0-27.0); Calcium 9.9 mg/dL (8.7-10.3); Carbon Dioxide 24.9 mmol/L (21.6-31.8); Chloride 106 mmol/L (96-109); Globulin 2.4 d/dL (1.6-3.3); Glucose 113 mg/dL (70-110); Potassium 4.1 mmol/L (3.5-5.5); Sodium 142 mmol/L (135-145); Total Bilirubin 0.3 mg/dL (0.3-1.2); Total Protein 6.9 d/dL (6.2-8.2)
== END | disposition home or self-care (01) ==
LOC: LABWHC1 10:55
PROVIDERS: ATTEND Internal Medicine Hematology & Oncology
DX: C50.812 Malignant neoplasm of overlapping sites of left female breast (principal); M81.0 Age-related osteoporosis without current pathological fracture; Z71.3 Dietary counseling and surveillance
CPT/HCPCS: 36415; 80053; 82306; 84443; 85025

== ENCOUNTER → 2023-04-20 | Outpatient (CLI) | payer MEDICARE ==
--- NOTE | 2023-04-20 09:20 | MM ---
Reason for Exam: Follow-up at short interval from prior study. Last screening mammogram was performed 12 month(s) ago. Patient History: Menarche at age 10. First Full-Term at age 21. Postmenopausal. Breast cancer, left, age 67. Breast cancer, left, age 67. Patient used Hormonal Contraceptives for 8 years. 07/01/2022, Lumpectomy on the Left side. 07/01/2022, Malignant US breast localization LT on the left side. 07/01/2022, Malignant MG pre op loc each addl LT on the left side. 07/01/2022, MG pre op needle loc LT on the Left side. 05/22/2022, Malignant US biopsy breast VAD LT on the left side. 05/22/2022, US biopsy breast add'l VAD LT on the Left side. 2002, Cyst Aspiration on the Right side. 03/20/2006, Cancelled Left Mammotome on the left side. Tissue Density: There are scattered fibroglandular densities. Findings: Analyzed By CAD. No postprocedural changes left breast. Benign-appearing calcified lesion No new suspicious masses, calcifications or distortions. Overall Assessment: Benign, BI-RAD 2 Management: Screening Mammogram of both breasts in 1 year. Results were given to the patient verbally at the time of exam. Patient should continue monthly self-breast exams. A clinical breast exam by your physician is recommended on an annual basis. This exam should not preclude additional follow-up of suspicious palpable abnormalities. Note on Ute scores and lifetime risk: 1. A Ute score greater than 3% is considered moderate risk. If this is the case, consider specialist referral to assess eligibility for a risk reducing agent. 2. If overall lifetime risk for the development of breast cancer is 20% or higher, the patient may qualify for future screening with alternating mammogram and breast MRI. Electronically signed and approved by: Alex Hawkins DO
== END | disposition home or self-care (01) ==
LOC: RADMAMWWP 08:49
PROVIDERS: ATTEND Surgery
DX: R92.8 Other abnormal and inconclusive findings on diagnostic imaging of breast (principal); Z78.0 Asymptomatic menopausal state; Z85.3 Personal history of malignant neoplasm of breast
CPT/HCPCS: 77066; G0279; 77062

== ENCOUNTER → 2024-04-25 | Outpatient (CLI) | payer MEDICARE ==
--- NOTE | 2024-04-25 07:59 | MM ---
Reason for Exam: Follow-up at short interval from prior study. Last screening mammogram was performed 12 month(s) ago. Patient History: Menarche at age 10. First Full-Term at age 21. Postmenopausal. Breast cancer, left, age 67. Breast cancer, left, age 67. Previous chest radiation therapy at age 67. Patient used Hormonal Contraceptives for 8 years. 07/01/2022, Lumpectomy on the Left side. 07/01/2022, Malignant US breast localization LT on the left side. 07/01/2022, Malignant MG pre op loc each addl LT on the left side. 07/01/2022, MG pre op needle loc LT on the Left side. 05/22/2022, Malignant US biopsy breast VAD LT on the left side. 05/22/2022, US biopsy breast add'l VAD LT on the Left side. 2002, Cyst Aspiration on the Right side. 03/20/2006, Cancelled Left Mammotome on the left side. Prior Study Comparison: 05/09/2022 Left US breast workup limited LT, [facility]. 05/09/2022 Left MG 3D work up w/cad LT, [facility]. 05/22/2022 Left MG diagnostic mammo LT wo CAD., [facility]. 06/09/2022 Bilateral MR breast bilat wo/w con, [facility]. 04/20/2023 Bilateral MG 3D diag mammo w/cad JOSE, [facility]. Tissue Density: There are scattered areas of fibroglandular density. Findings: Analyzed By CAD. The pattern is symmetrical. Nodularities within the right breast. There are scattered benign-appearing calcifications within the left breast. Previous suspicious calcifications been resected. No suspicious groups of microcalcifications, spiculated or lobular masses, architectural distortion or other secondary signs of malignancy are mammographically apparent. Overall Assessment: Benign, BI-RAD 2 Management: Diagnostic Mammogram of both breasts in 1 year. A negative mammogram report should not preclude additional follow up of suspicious palpable abnormalities. Patient should continue monthly self breast exam. A clinical breast exam by your physician is recommended on an annual basis and results should be correlated with mammographic findings. Note on Ute scores and lifetime risk: 1. A Ute score greater than 3% is considered moderate risk. If this is the case, consider specialist referral to assess eligibility for a risk reducing agent. 2. If overall lifetime risk for the development of breast cancer is 20% or higher, the patient may qualify for future screening with alternating mammogram and breast MRI. [facility], , 04/25/2024 7:56 AM. Electronically signed and approved by: Carter Logan D.O. Radiologis
== END | disposition home or self-care (01) ==
LOC: RADMAMWWP 07:24
PROVIDERS: ATTEND Surgery
DX: R92.8 Other abnormal and inconclusive findings on diagnostic imaging of breast
CPT/HCPCS: 77062; 77066

== ENCOUNTER → 2024-09-05 | Outpatient (CLI) | payer MEDICARE ==
--- NOTE | 2024-09-05 10:32 | BD ---
EXAMINATION TYPE: Axial Bone Density DATE OF EXAM: 09/05/2024 CLINICAL HISTORY: 69 years old Female. ICD-10 CODE: M81.0 Osteoporosis , Additional History: Height: 62 Weight: 134.8 FRAX RISK QUESTIONS: Alcohol (3 or more units per day): no Family History (Parent hip fracture): mother Glucocorticoids (More than 3mos): no (Ex: prednisone, prednisolone, methylprednisolone, dexamethasone, and hydrocortisone). History of Fracture in Adulthood: no Secondary Osteoporosis: 1. Type 1 Diabetes: no 2. Hyperthyroidism:no 3. Menopause before 45: no 4. Malnutrition: no 5. Chronic liver disease: no Rheumatoid Arthritis: no Current Tobacco Use: no RISK FACTORS HISTORY OF: Hip Fracture (Right/Left): no Spine Fracture: no History of Wrist Fracture: no Surgery to Spine/Hip(right/left)/Wrist (right/left): no MEDICATIONS: Thyroid Medications: no Osteoporosis Medications: Fosamax weekly How Long: past 2 year Breast Cancer 2022 with Radiation EXAM MEASUREMENTS: Bone mineral densitometry was performed using the [employer] System. Bone mineral density as measured about the Lumbar spine is: ----- L1-L4(G/cm2): 1.017 T Score Values are as follows: ----- L1: -1.2 ----- L2: -1.4 ----- L3: -1.7 ----- L4: -1.2 ----- L1-L4: -.4 Z Score Values are as follows: ----- L1: 0.6 ----- L2: 0.4 ----- L3: 0.1 ----- L4: 0.6 ----- L1-L4: 0.5 Bone mineral density has: increased 7.1 % since study of: 09/04/2022 Bone mineral density about the R hip (g/cm2): 0.711 Bone mineral density about the L hip (g/cm2): 0.713 T Score values are as follows: -----R Neck: -2.2 -----L Neck: -2.3 -----R Total: -2.4 -----L Total: -2.3 Z Score values are as follows: -----R Neck: -0.3 -----L Neck: -0.5 -----R Total: -0.7 -----L Total: -0.7 Bone mineral density has: increased 2.3 % since study of: 09/04/2022 FRAX%s: The graph provided illustrates a 22.9% chance for a major osteoporotic fx and a 8.9% chance f or the hips probability for fx in 10 years time. IMPRESSION: Osteopenia (T Score between -2.5 and -1) remains present. There is slightly increased risk of fracture and the patient may be considered for treatment. Re-Screen 2-5 years. NOTE: T-SCORE=SD OF THE YOUNG ADULT MEAN. [facility], , 09/05/2024 10:30 AM
== END | disposition home or self-care (01) ==
LOC: RADBDWWP 09:30
PROVIDERS: ATTEND Internal Medicine Hematology & Oncology
DX: M81.0 Age-related osteoporosis without current pathological fracture (principal); M85.89 Other specified disorders of bone density and structure, multiple sites; C50.812 Malignant neoplasm of overlapping sites of left female breast
CPT/HCPCS: 77080